=== PATIENT | male | born 1995 | race Caucasian/White ===

== ENCOUNTER 2024-03-05 05:38 | Emergency (ER) | payer SELFPAY ==
[~2024-03-05] VITALS: Ht 175.3 cm; Wt 90.5 kg
[2024-03-05 05:52] VITALS: O2SAT 97
[2024-03-05] MEDS: MAGNESIUM/ALUMINUM HYDROXIDE/SIMETHICONE 30ML UDC PO STA (06:11)
[2024-03-05 06:14] LABS: BASOPHILS % 0.4 % (0.0-2.0); EOSINOPHILS % 0.6 % (0.0-5.0); HEMOGLOBIN. 15.4 g/dL (14.0-18.0); LYMPHOCYTES % 24.4 % (20.0-50.0); MEAN CORPUSCULAR HEMOGLOBIN 27.4 pg (28.0-32.0); MEAN CORPUSCULAR HGB CONC 33.5 g/dL (31.0-37.0); MEAN PLATELET VOLUME 8.1 fl (7.4-10.4); MONOCYTES % 5.6 % (2.0-8.0); PLATELET 244 x1000/uL (130-400); RED BLOOD CELL COUNT 5.61 mill/uL (4.7-6.1); RED CELL DISTRIBUTION WIDTH 14.5 % (11.6-14.6); WHITE BLOOD COUNT 9.7 x1000/uL (4.5-11.0)
[2024-03-05 06:30] LABS: CHLORIDE 103 mEq/L (98-107); POTASSIUM 3.4 mEq/L (3.5-5.1); SODIUM 139 mEq/L (136-145)
[2024-03-05 06:31] LABS: CALCIUM 9.4 mg/dL (8.7-10.4); CARBON DIOXIDE 26 mEq/L (21-32)
[2024-03-05 06:32] LABS: INR 0.9; PROTHROMBIN TIME 10.6 sec (9.6-11.0)
[2024-03-05 06:36] LABS: CREATININE 1.3 mg/dL (0.6-1.3); GLUCOSE 105 mg/dL (70-105); UREA NITROGEN BLOOD 20 mg/dL (9-23)
[2024-03-05 06:38] LABS: ALANINE AMINOTRANSFERASE 48 IU/L (10-49); ALBUMIN 4.8 g/dL (3.2-4.8); ASPARTATE AMINOTRANSFERASE 23 IU/L (<34); BILIRUBIN TOTAL 0.3 mg/dL (0.1-1.0); PROTEIN TOTAL 7.5 g/dL (6.0-8.3)
[2024-03-05 07:03] LABS: BILIRUBIN DIRECT < 0.1 mg/dL (<=3.0)
[2024-03-05 07:04] LABS: CLARITY URINE CLEAR (CLEAR); COLOR URINE YELLOW (YELLOW); GLUCOSE URINE NEGATIVE (NEGATIVE); KETONES URINE NEGATIVE (NEGATIVE); LEUKOCYTE ESTERASE URINE NEGATIVE (NEGATIVE); NITRITE URINE NEGATIVE (NEGATIVE); OCCULT BLOOD URINE NEGATIVE (NEGATIVE); PROTEIN URINE NEGATIVE (NEGATIVE); SPECIFIC GRAVITY URINE 1.025 (1.005-1.030)
[2024-03-05] MEDS: DICYCLOMINE 10 MG/5 ML ORAL SYR PO STA (07:29)
[2024-03-05] MEDS: SODIUM CHLORIDE 0.9% 1,000 ML IV ONE (07:38)
[2024-03-05] MEDS ORDERED: TOPUD PO (08:46)
[2024-03-05] MEDS ORDERED: FAMO-135 PO (08:46)
[2024-03-05 10:00] VITALS: BP 109/52; PULSE 64; RESP 16; TEMP 37.00296; O2SAT 97
== END 2024-03-05 10:02 | disposition home or self-care (01) ==
LOC: EDBD 05:38 → ER 05:38
DX: R10.11 Right upper quadrant pain (principal); R10.32 Left lower quadrant pain
CPT/HCPCS: 80076; 80048; 81003; 83690; 85025; 85610; 36415; 74176; 76705; 99284; J7030; Z7610 ×3

== ENCOUNTER 2024-05-08 10:26 | Emergency (ER) | payer SELFPAY ==
[~2024-05-08] VITALS: Ht 175.3 cm; Wt 90.0 kg
[~2024-05-08 10:26] MED LIST: FAMO-135 PO; TOPUD PO
[2024-05-08 10:47] VITALS: BP 151/88; PULSE 89; RESP 18; TEMP 98.7; O2SAT 99
[2024-05-08] MEDS ORDERED: IBUPROFEN 400MG TABLET PO ONE (11:30)
[2024-05-08] MEDS ORDERED: ACET-2708 MT (14:09)
[2024-05-08] MEDS: IBUPROFEN 400MG TABLET PO NR (14:13)
== END 2024-05-08 14:27 | disposition home or self-care (01) ==
LOC: ER 10:35
DX: R51.9 Headache, unspecified (principal)
CPT/HCPCS: 99284

== ENCOUNTER 2025-04-28 03:51 | Inpatient (IN) | payer OTHER ==
[~2025-04-28] VITALS: Ht 149.9 cm; Wt 96.2 kg
[~2025-04-28 03:51] MED LIST changes: +ACET-2708 MT
[2025-04-28 03:57] VITALS: O2SAT 99
[2025-04-28] MEDS: ONDANSETRON HCL 4MG/2ML INJ IV ONE ×2 (04:33→05:51)
[2025-04-28] MEDS: KETOROLAC 15MG/ML VIAL IV ONE (04:33)
[2025-04-28 04:40] LABS: HEMATOCRIT. 48.8 % (42.0-52.0); HEMOGLOBIN. 15.8 g/dL (14.0-18.0); MEAN PLATELET VOLUME 8.3 fl (7.4-10.4); PLATELET 227 x1000/uL (130-400); RED BLOOD CELL COUNT 5.94 mill/uL (4.7-6.1); RED CELL DISTRIBUTION WIDTH 14.3 % (11.6-14.6)
[2025-04-28 04:55] LABS: CREATININE 1.1 mg/dL (0.6-1.3); UREA NITROGEN BLOOD 10 mg/dL (9-23)
[2025-04-28 04:57] LABS: ASPARTATE AMINOTRANSFERASE 18 IU/L (<34); BILIRUBIN DIRECT 0.2 mg/dL (<=3.0); BILIRUBIN TOTAL 0.5 mg/dL (0.1-1.0); PROTEIN TOTAL 7.4 g/dL (6.0-8.3); TROPONIN I HIGH SENSITIVITY < 4 ng/L (3.0-53)
[2025-04-28] MEDS: SODIUM CHLORIDE 0.9% 1,000 ML IV ONE (05:51)
[2025-04-28] MEDS: MORPHINE SULFATE 4 MG/ML INJ (FOR IV/IM USE) IV ONE (05:54)
[2025-04-28 05:57] LABS: CLARITY URINE CLEAR (CLEAR); COLOR URINE YELLOW (YELLOW); GLUCOSE URINE NEGATIVE (NEGATIVE); KETONES URINE NEGATIVE (NEGATIVE); LEUKOCYTE ESTERASE URINE NEGATIVE (NEGATIVE); NITRITE URINE NEGATIVE (NEGATIVE); OCCULT BLOOD URINE NEGATIVE (NEGATIVE); PH URINE 5.5 (4.5-8.0); PROTEIN URINE NEGATIVE (NEGATIVE); SPECIFIC GRAVITY URINE 1.025 (1.005-1.030); UROBILINOGEN URINE 0.2 E.U./dL (0.2-1.0)
[2025-04-28] MEDS: PIPERACILLIN/TAZO 3.375G/50ML 50 ML IV NR (05:57)
[2025-04-28 06:02] LABS: BAND% 2.0 % (1.0-6.0); LYMPHOCYTES % MANUAL 10.0 % (20.0-50.0); MONOCYTES % MANUAL 2.0 % (2.0-8.0); NEUTROPHILS % MANUAL 86.0 % (45.0-75.0); PLATELET ESTIMATE NORMAL
[2025-04-28 06:19] LABS: *AMPHETAMINES SCREEN URINE NEGATIVE (NEGATIVE); *BARBITURATES SCREEN URINE NEGATIVE (NEGATIVE); *BENZODIAZEPINES SCREEN URINE NEGATIVE (NEGATIVE); *COCAINE SCREEN URINE NEGATIVE (NEGATIVE); METHADONE URINE SCREEN NEGATIVE (NEGATIVE)
[2025-04-28 06:20] LABS: CANNABINOID URINE SCREEN NEGATIVE (NEGATIVE); ECSTASY MDMA SCREEN URINE NEGATIVE (NEGATIVE); OPIATES URINE SCREEN NEGATIVE (NEGATIVE); PHENCYCLIDINE URINE SCREEN NEGATIVE (NEGATIVE)
[2025-04-28] MEDS ORDERED: SKIN ADHESIVE 0.7 GM EA TOP ONE (07:07)
[2025-04-28] MEDS ORDERED: BUPIVACAINE HCL/PF 0.5% (5MG/ML) 10ML ONE (07:07)
[2025-04-28] MEDS ORDERED: FAMOTIDINE 20MG/2ML VIAL IV ONE (07:51)
[2025-04-28] MEDS ORDERED: ROCURONIUM BROMIDE 10MG/ML VIAL 5ML IV ONE (07:51)
[2025-04-28] MEDS ORDERED: ACETAMINOPHEN 1000MG/100ML 100 ML IV ONE (07:51)
[2025-04-28] MEDS ORDERED: PROPOFOL 200MG/20ML VIAL IV ONE (07:56)
[2025-04-28] MEDS ORDERED: SUCCINYLCHOLINE CHLORIDE 200MG/10ML IV ONE (07:56)
[2025-04-28] MEDS ORDERED: MIDAZOLAM HCL 2 MG/2 ML VIAL ONE (07:56)
[2025-04-28] MEDS ORDERED: ONDANSETRON HCL 4MG/2ML INJ ONE (07:56)
[2025-04-28] MEDS ORDERED: DEXAMETHASONE 4MG/ML 1ML VIAL ONE (07:56)
[2025-04-28] MEDS ORDERED: FENTANYL CITRATE/PF 50MCG/ML 2ML VIAL ONE (07:57)
[2025-04-28] MEDS ORDERED: PHENYLEPHRINE HCL 10MG/ML 1ML IV ONE (08:00)
[2025-04-28] MEDS ORDERED: ONDANSETRON HCL 4MG/2ML INJ IV PRN (08:15)
[2025-04-28] MEDS ORDERED: HYDROCODONE/ACETAMINOPHEN 5/325MG TABLET PO PRN (08:15)
[2025-04-28] MEDS ORDERED: KETOROLAC 30MG/ML VIAL ONE (08:20)
[2025-04-28] MEDS ORDERED: HYDROMORPHONE HCL/PF 1MG/ML INJ ONE (08:23)
[2025-04-28] MEDS ORDERED: NALOXONE HCL 0.4MG/ML VIAL IV PRN (08:45)
[2025-04-28] MEDS ORDERED: PIPERACILLIN/TAZO 3.375G/50ML 50 ML IV SCH (09:00)
[2025-04-28 10:50] VITALS: BP 125/70; PULSE 100; PULSE 104; RESP 16; RESP 18; TEMP 36.5; TEMP 36.5292; O2SAT 97
[2025-04-28 12:00] VITALS: BP 122/78; PULSE 95; RESP 18; TEMP 36.2; O2SAT 99
[2025-04-28] MEDS: DEXT 5%/0.45% NACL KCL 20MEQ/L 1,000 ML IV SCH (14:33)
[2025-04-28 16:00] VITALS: BP 120/71; PULSE 90; RESP 18; TEMP 36.1; O2SAT 99
[2025-04-28 20:00] VITALS: BP 124/71; PULSE 90; RESP 18; TEMP 36.2; O2SAT 98
[2025-04-28] MEDS: MORPHINE SULFATE 4 MG/ML INJ (FOR IV/IM USE) IV PRN (20:46)
[2025-04-29] VITALS: BP 114/73; PULSE 90; RESP 16; TEMP 36.7; O2SAT 98
[2025-04-29 04:00] VITALS: BP 111/72; PULSE 90; RESP 16; TEMP 36.6; O2SAT 98
[2025-04-29 08:00] VITALS: BP 121/74; PULSE 79; RESP 20; TEMP 37.2; O2SAT 100
[2025-04-29] MEDS: HYDROCODONE/ACETAMINOPHEN 5/325MG TABLET PO PRN (09:06)
[2025-04-29 12:00] VITALS: BP 118/76; PULSE 87; RESP 20; TEMP 36.7; O2SAT 100
[2025-04-29 16:00] VITALS: BP 122/71; PULSE 89; RESP 18; TEMP 36.4; O2SAT 100
[2025-04-29 17:19] VITALS: BP 127/67; PULSE 88; RESP 20; TEMP 98.7
== END 2025-04-29 17:38 | disposition home or self-care (01) | DRG 234 ==
LOC: ER 03:51 → 4WST 05:41 → EDBEDREQ 05:48 → EDBEDREQTM 05:48 → ENRESERV 09:15
PROVIDERS: ADMIT Family Medicine Adult Medicine; ATTEND Family Medicine Adult Medicine
PROC: 0DTJ4ZZ Resection of Appendix, Percutaneous Endoscopic Approach (ICD-10-PCS; principal; 2025-04-28)
DX: K35.80 Unspecified acute appendicitis (principal); K57.90 Diverticulosis of intestine, part unspecified, without perforation or abscess without bleeding; Z79.899 Other long term (current) drug therapy
CPT/HCPCS: 36415; 71045; 74176; 80048; 80076; 80305; 81003; 84484; 85025; 88304; 99285; J0330; J0665; J1100; J1171; J1308; J1885; J2250; J2270; J2371; J2405; J2543; J2704; J3010; J3490; J7030; A4217; J0131